=== PATIENT | male | born 1955 | race Caucasian/White ===

== ENCOUNTER 2019-09-08 23:07 | Inpatient (IN) | payer BC, OTHER ==
[~2019-09-08] VITALS: Ht 175.3 cm; Wt 102.1 kg
[2019-09-08 23:10] VITALS: BP_SYST 154
--- NOTE | 2019-09-08 23:14 | NUR ---
Matt wing in [facility] - 09/09/19 at 0028 by [email or web address] CATIE Johnson at bedside examining patient.
--- NOTE | 2019-09-08 23:14 | NUR ---
Pt had one episode of emesis. ER MD made aware.
--- NOTE | 2019-09-08 23:15 | NUR ---
PPlaced in room 3 . Placed on threat monitoring analyst, blood pressure machine and pulse oximeter. To gown for exam. Side rails up.
[2019-09-08] MEDS ORDERED: NACL 0.9% 1,000 ML IV ONE (23:16)
--- NOTE | 2019-09-08 23:16 | NUR ---
ER at bedside examining patient.
--- NOTE | 2019-09-08 23:20 | NUR ---
Matt wing in [facility] - 09/09/19 at 0029 by [email or web address] CATIE Johnson at bedside examining patient.
--- NOTE | 2019-09-08 23:20 | NUR ---
Pt came to the ED for 1 hour hx of gradual R sided chest pain. Reports he currently feels nauseious. States that he has RUQ abd pain that radiates up. Pt states he has cold-like symptoms for about a week. Denies n/v/d or fever. No other complaints/injuries noted. Will cont. to monitor.
--- NOTE | 2019-09-08 23:20 | NUR ---
Pt reports that he has an "irregular heartbeat that sometimes skips a beat." Pt states that he has been following it up with multiple shaft sinker. CATIE PISANO made aware.
[2019-09-08] MEDS ORDERED: MAG HYDROX/AL HYDROX/SIMETH 30 ML, DICYCLOMINE HCL 20 MG, LIDOCAINE VISCOUS 2% 15ML (PO... PO ONE ×3 (23:30)
[2019-09-08] MEDS ORDERED: ONDANSETRON HCL 4 MG/2 ML VIAL IVP ONE (23:30)
[2019-09-09 00:35] LABS: BASOPHILS # (AUTO) 0.1 K/uL (0.0-0.2); BASOPHILS % (AUTO) 0.5 % (0.0-2.0); EOSINOPHILS # (AUTO) 0.2 K/uL (0.0-0.4); EOSINOPHILS % (AUTO) 1.7 % (0.0-4.0); HEMATOCRIT 41.3 % (36-54); HEMOGLOBIN 14.2 g/dL (14.0-18.0); LYMPHOCYTES # (AUTO) 2.6 K/uL (1.0-5.5); LYMPHOCYTES % (AUTO) 22.2 % (20.5-51.5); MEAN CORPUSCULAR HEMOGLOBIN 33 pg (27-31); MEAN CORPUSCULAR HGB CONC 34 % (32-36); MEAN CORPUSCULAR VOLUME 96 fL (79.0-98.0); MONOCYTES # (AUTO) 1.1 K/uL (0.0-1.0); NEUTROPHILS # (AUTO) 7.8 K/uL (1.8-7.7); NEUTROPHILS % (AUTO) 66.6 % (40.0-70.0); PLATELET COUNT (AUTO) 424 K/uL (130-430); RED BLOOD CELL COUNT(AUTO) 4.29 MIL/uL (4.2-6.2); RED CELL DISTRIBUTION WIDTH 13.4 % (9.0-15.0); WHITE BLOOD COUNT (AUTO) 11.7 K/uL (4.8-10.8)
--- NOTE | 2019-09-09 00:45 | NUR ---
ER at bedside speaking to patient.
[2019-09-09 00:52] LABS: CALCIUM 8.6 mg/dL (8.4-11.0); CREATININE 1.02 mg/dL (0.55-1.30); POTASSIUM 3.4 mmol/L (3.5-5.1)
[2019-09-09 00:56] LABS: ALBUMIN 3.7 g/dL (3.4-4.8); TOTAL BILIRUBIN 0.2 mg/dL (0.0-1.0)
[2019-09-09] MEDS ORDERED: ASPIRIN 81 MG TAB.CHEW PO ONE (01:00)
[2019-09-09] MEDS ORDERED: NITROGLYCERIN 0.4 MG TAB.SUBL SL ONE (01:00)
[2019-09-09] MEDS ORDERED: CLOPIDOGREL BISULFATE 75 MG TABLET PO ONE (01:00)
--- NOTE | 2019-09-09 01:00 | NUR ---
Per Dr. Reyes, give pt one dose of nitroglycerin.
--- NOTE | 2019-09-09 01:15 | NUR ---
Pt states, "my chest pain is almost gone." ER MD made aware.
--- NOTE | 2019-09-09 01:55 | NUR ---
Note maciej in ED - 09/09/19 at 0219 by [email or web address] Pt states that he is not sure how many milligrams the liptor he takes. Reports that he takes it every other day.
--- NOTE | 2019-09-09 01:55 | NUR ---
Patient will be admitted to care of Dr. Gallegos. Admitted to Tele unit. Will go to room 133B. Belongings list completed. Complete and up to date summary report printed. SBAR report to be given at bedside with opportunity for questions.
--- NOTE | 2019-09-09 02:20 | NUR ---
Medication reconciliation completed with information provided by patient. Any prior medication reconciliation on file was reviewed and corrected.
[2019-09-09] MEDS ORDERED: LISI10TA5 PO (02:24)
--- NOTE | 2019-09-09 02:25 | NUR ---
Called MST for bed, will call when bed is ready.
[2019-09-09 02:40] LABS: BILIRUBIN,URINE NEGATIVE (NEGATIVE); CLARITY/URINE CLEAR (CLEAR); COLOR,URINE YELLOW (YELLOW); GLUCOSE,URINE NEGATIVE (NEGATIVE); KETONES,URINE NEGATIVE (NEGATIVE); LEUKOCYTE ESTERASE ,URINE NEGATIVE (NEGATIVE); NITRITE, URINE NEGATIVE (NEGATIVE); PROTEIN URINE 1+ (NEGATIVE); UROBILINOGEN,URINE 0.2 (0.2-1.0)
[2019-09-09 02:42] LABS: BLOOD, URINE TRACE (NEGATIVE)
[2019-09-09 02:48] LABS: BACTERIA,URINE FEW /HPF (None Seen); WBC,URINE 0-3 /HPF (0-3)
--- NOTE | 2019-09-09 03:07 | NUR ---
ADMIT NOTE Received pt from ER to the floor with a diagnosis of NTSTEMI, CHOLELITHIASIS. Admission process initiated. patient oriented to pain management, safety and call light-teach back done.
[2019-09-09 03:18] VITALS: BP_SYST 136
[2019-09-09] MEDS ORDERED: MORPHINE 4 MG/ML INJ. SYRINGE IVP PRN (04:00)
[2019-09-09] MEDS ORDERED: ACETAMINOPHEN 325 MG TABLET PO PRN (04:00)
[2019-09-09] MEDS ORDERED: ALBUTEROL SULFATE 0.083% 2.5 MG/3 ML VIAL.NEB INH PRN (04:00)
[2019-09-09] MEDS ORDERED: MORPHINE 2 MG/ML INJ. SYRINGE IVP PRN (04:00)
--- NOTE | 2019-09-09 04:00 | NUR ---
DR PASCUAL AT BEDSIDE Dr Pascual at bedside assessing patient. Plan of care explained to the patient and patient's . All questions and concerns addressed at this time.
[2019-09-09 04:14] VITALS: BP_SYST 136
[2019-09-09] MEDS ORDERED: *LOVENOX 1MG/KG Q12H/PHARMACY XX PRN (04:15)
[2019-09-09] MEDS ORDERED: POTASSIUM CHLORIDE 20 MEQ TAB.PRT.SR PO ONE (05:00)
[2019-09-09] MEDS ORDERED: ENOXAPARIN SODIUM 100 MG/ML SYRINGE SUBCUT SCH (05:00)
--- NOTE | 2019-09-09 05:42 | NUR ---
Consultation Paged Reason for Consultation: Seizure Was consult called: Y Person who was Notified: Brittani Consulting Physician: Jake Chambers Ground Intelligence Officer Ordering Physician: Dr. Saxena Addendum: 09/09/19 at 0553 by Leela Vick ME/ ======WRONG CONSULT
--- NOTE | 2019-09-09 05:54 | NUR ---
Consultation Paged Reason for Consultation: NSTEMI Was consult called: Y Person who was Notified: Brittani Consulting Physician: Junior Dupree Flame Annealing Machine Operator Ordering Physician: Dr. Gallegos
--- NOTE | 2019-09-09 06:41 | NUR ---
CLOSING NOTES Patient in bed sleeping. No s/s of acute distress noted. Breathing even and unlabored. IVF infusing well, IV site patent, no signs of infiltration or infection noted. Skin warm and dry to touch, no s/s of hypoglycemia noted. All needs met throughout shift. Fall and safety precautions maintained throughout shift. Will continue to monitor until patient care is endorsed to oncoming dayshift nurse.
[2019-09-09 08:00] VITALS: BP_SYST 122
--- NOTE | 2019-09-09 08:00 | NUR ---
ASSUMPTION OF CARE: RECEIVED PT A/A/OX4, DX:RISK FOR DECREASED CARDIAC OUTPUT, R/T NSTEMI, CHOLELITHIASIS. PT IS AFEBRILE, NO S/S OF DISTRESS, SINUS CHERELLE ON MONITOR=51 BPM, ASYMPTOMATIC, PULSES ARE PALPABLE, SKIN IS WARM, DRY TO TOUCH, BREATHING EASY, DENIES HAVING ANY PAIN OR DISCOMFORT, ORIENTED TO UNIT, CALL LIGHT PLACED WITHIN REACH, FAMILY AT BEDSIDE, WILL CONT' TO MONITOR AND ASSESS.
[2019-09-09 08:05] LABS: BASOPHILS # (AUTO) 0.1 K/uL (0.0-0.2); BASOPHILS % (AUTO) 0.6 % (0.0-2.0); EOSINOPHILS # (AUTO) 0.1 K/uL (0.0-0.4); EOSINOPHILS % (AUTO) 0.5 % (0.0-4.0); HEMATOCRIT 37.8 % (36-54); HEMOGLOBIN 13.1 g/dL (14.0-18.0); LYMPHOCYTES # (AUTO) 1.8 K/uL (1.0-5.5); LYMPHOCYTES % (AUTO) 16.9 % (20.5-51.5); MEAN CORPUSCULAR HEMOGLOBIN 34 pg (27-31); MEAN CORPUSCULAR HGB CONC 35 % (32-36); MEAN CORPUSCULAR VOLUME 97 fL (79.0-98.0); NEUTROPHILS # (AUTO) 7.8 K/uL (1.8-7.7); PLATELET COUNT (AUTO) 371 K/uL (130-430); RED BLOOD CELL COUNT(AUTO) 3.92 MIL/uL (4.2-6.2); WHITE BLOOD COUNT (AUTO) 10.7 K/uL (4.8-10.8)
[2019-09-09 08:09] LABS: ALBUMIN 3.2 g/dL (3.4-4.8); CALCIUM 8.1 mg/dL (8.4-11.0); CREATININE 0.87 mg/dL (0.55-1.30); POTASSIUM 4.2 mmol/L (3.5-5.1)
[2019-09-09 08:10] LABS: TOTAL BILIRUBIN 0.5 mg/dL (0.0-1.0)
--- NOTE | 2019-09-09 08:17 | NUR ---
ANTONINA SERRANO FOR CRITICAL LAB
--- NOTE | 2019-09-09 09:50 | NUR ---
PONY ROUGHER: MORNING MEDS GIVEN, PER ORDERED BY Sally, TOLERATED WELL, WILL CONT' WITH POC.
[2019-09-09] MEDS: ASPIRIN 325 MG TABLET PO SCH (10:10)
[2019-09-09] MEDS: LISINOPRIL 10 MG TABLET (PRINIVIL) PO SCH (10:10)
--- NOTE | 2019-09-09 11:30 | NUR ---
GLUCOSE MONITORING: BLOOD SUGAR LEVEL=93, NO COVERAGE REQUIRED, REMAINS STABLE AT THIS TIME, WILL CONT' TO MONITOR AND ASSESS.
[2019-09-09 12:10] VITALS: BP_SYST 122
--- NOTE | 2019-09-09 15:00 | NUR ---
NURSES NOTES: ABDOMINAL US COMPLETED AT BEDSIDE, PT TOLERATED WELL, IS RESTING IN POSITION OF COMFORT, NEEDS MET, FAMILY AT BEDSIDE, CALL LIGHT PLACED WITHIN REACH, WILL CONT' TO MONITOR AND ASSESS.
--- NOTE | 2019-09-09 17:00 | NUR ---
GLUCOSE MONITORING: BLOOD SUGAR LEVEL=91, NO COVERAGE REQUIRED, REMAINS STABLE AT THIS TIME, WILL CONT' TO MONITOR AND ASSESS.
[2019-09-09 17:02] VITALS: BP_SYST 116
--- NOTE | 2019-09-09 17:30 | NUR ---
NURSES NOTES: PT AND FAMILY REQUEST TO BE DISCHARGE REGARDLESS OF PRESENT CONDITION OR PENDING RESULTS OF ABD ULTRA SOUND, PT STATES "I NEED TO SPEAK WITH MY DRHector NOW SO I CAN BE DISCHARGED OR I WILL SIGN MYSELF OUT AMA", NURSE DISCUSSED THE BENEFIT OF BEING PATIENT AND WAITING FOR RESULTS WELL OF THE DISADVANTAGES OF LEAVING BEFORE 'S ASSESSMENT OF TEST RESULTS AND TREATMENT PLAN, PT AND FAMILY APPEAR ANXIOUS TO LEAVE, BUT AGREE TO STAY AT THIS POINT, PT MADE COMFORTABLE, NEEDS MET, CALL LIGHT PLACED WITHIN REACH.
--- NOTE | 2019-09-09 18:00 | NUR ---
END OF SHIFT: PT RESTING, STATES HE IS ANXIOUS TO BE DISCHARGED, WAS MADE COMFORTABLE, AND REASSURED THAT PCP WILL B HERE TO MAKE ROUNDS, FAMILY AT BEDSIDE, CALL LIGHT PLACED WITHIN REACH, WILL ENDORSE TO RETAIL GENERAL MANAGER NURSE.
--- NOTE | 2019-09-09 19:25 | NUR ---
Pt is lying is bed fully awake, alert and oriented x4. No c/o pain or discomfort. Saline lock in LAC is without any signs of infiltration. Fall and safety precautions are in place.
[2019-09-09 20:00] VITALS: BP_SYST 105
--- NOTE | 2019-09-09 20:48 | NUR ---
Accucheck 103 and no Insulin coverage needed. Skin warm and dry to touch. Pt declined HS snacks. Fall and safety precautions are in place.
[2019-09-09] MEDS: ENOXAPARIN SODIUM 100 MG/ML SYRINGE SUBCUT SCH (20:50)
--- NOTE | 2019-09-09 23:00 | NUR ---
Pt is sleeping without any distress noted. Saline lock is intact in LAC. Fall and safety precautions are in place.
--- NOTE | 2019-09-10 01:00 | NUR ---
Pt is sleeping comfortably in bed. Saline lock is intact in LAC. Fall and safety precautions are in place.
--- NOTE | 2019-09-10 03:00 | NUR ---
Pt is sleeping quietly in bed. Fall and safety precautions are in place.
--- NOTE | 2019-09-10 05:00 | NUR ---
No distress noted. Fall and safety precautions are in place.
[2019-09-10 05:59] LABS: ALBUMIN 3.1 g/dL (3.4-4.8); CALCIUM 8.4 mg/dL (8.4-11.0); CREATININE 0.88 mg/dL (0.55-1.30); POTASSIUM 4.4 mmol/L (3.5-5.1); TOTAL BILIRUBIN 0.6 mg/dL (0.0-1.0)
[2019-09-10 06:37] LABS: BASOPHILS % (AUTO) 0.7 % (0.0-2.0); EOSINOPHILS # (AUTO) 0.2 K/uL (0.0-0.4); HEMATOCRIT 39.4 % (36-54); HEMOGLOBIN 13.4 g/dL (14.0-18.0); LYMPHOCYTES # (AUTO) 2.3 K/uL (1.0-5.5); LYMPHOCYTES % (AUTO) 32.4 % (20.5-51.5); MEAN CORPUSCULAR HEMOGLOBIN 33 pg (27-31); MEAN CORPUSCULAR HGB CONC 34 % (32-36); MEAN CORPUSCULAR VOLUME 98 fL (79.0-98.0); MONOCYTES # (AUTO) 0.6 K/uL (0.0-1.0); MONOCYTES % (AUTO) 8.9 % (1.7-9.3); NEUTROPHILS # (AUTO) 3.8 K/uL (1.8-7.7); PLATELET COUNT (AUTO) 364 K/uL (130-430); RED BLOOD CELL COUNT(AUTO) 4.03 MIL/uL (4.2-6.2); RED CELL DISTRIBUTION WIDTH 13.1 % (9.0-15.0)
--- NOTE | 2019-09-10 06:37 | NUR ---
Pt is awake and resting comfortably in bed. All pt's needs were attended to. Accucheck 112 this Am and skin remains warm and dry to touch. Fall and safety precautions are in place. Will endorse to day shift nurse.
[2019-09-10 08:00] VITALS: BP_SYST 116
--- NOTE | 2019-09-10 08:00 | NUR ---
initial notes rec patient sitting in the chair and talking to dr yeung. ivl on the l ac intact. no infiltration. resp easy unlabored. no sob noted. denies pain. call light within reached. bed to the lowest position.
[2019-09-10] MEDS: ASPIRIN 325 MG TABLET PO SCH (09:22)
[2019-09-10] MEDS: LISINOPRIL 10 MG TABLET (PRINIVIL) PO SCH (09:23)
[2019-09-10] MEDS: ENOXAPARIN SODIUM 100 MG/ML SYRINGE SUBCUT SCH (09:24)
--- NOTE | 2019-09-10 11:00 | NUR ---
rounds seen by dr trujillo and spoke with patient and the . awaiting for sx consult .
--- NOTE | 2019-09-10 11:49 | NUR ---
CONSULTATION PAGED/CALLED Reason for Consultation: [] cholilithiasis Person Who was Notified: [] NITA Consulting Physician: [] DR Kelli WEI Furniture Installer Specialty: [] GEN SURGEON Ordering Physician: [] DR Suni BLANCO
--- NOTE | 2019-09-10 12:30 | NUR ---
rounds dr jamee mancia at bedside to see patient re sx. call light within reached. no sob noted.
[2019-09-10] MEDS ORDERED: AMOX-426 PO (13:03)
[2019-09-10 13:28] VITALS: BP_SYST 128
[2019-09-10 14:09] VITALS: BP_SYST 128
== END 2019-09-10 14:50 | disposition home or self-care (01) | DRG 281 ==
LOC: SED 23:07 → STU 09-09 01:10
PROVIDERS: ADMIT Internal Medicine Hospice and Palliative Medicine; ATTEND Internal Medicine Hospice and Palliative Medicine
DX: I21.A1 Myocardial infarction type 2 (principal); K80.00 Calculus of gallbladder with acute cholecystitis without obstruction; E66.9 Obesity, unspecified; F17.290 Nicotine dependence, other tobacco product, uncomplicated; I10 Essential (primary) hypertension; R73.9 Hyperglycemia, unspecified; Z79.899 Other long term (current) drug therapy; Z68.33 Body mass index [BMI] 33.0-33.9, adult
CPT/HCPCS: 36415; 71045; 76700-TC; 80053; 80061; 81000-TC; 82150-TC; 82550-TC; 82962; 83036; 83605; 83690-TC; 83880; 84484; 85025; 85610-TC; 85730-TC; 87040-TC; 93005; 93306; 96361; 96374; 99285; G0378; J1650; J2001; J2405; J7030

== ENCOUNTER 2019-09-11 23:44 | Emergency (ER) | payer BC, OTHER ==
[~2019-09-11] VITALS: Ht 175.3 cm; Wt 97.5 kg
[~2019-09-11 23:44] MED LIST: AMOX-426 PO; LISI10TA5 PO
[2019-09-11 23:50] VITALS: BP_SYST 138
--- NOTE | 2019-09-11 23:59 | NUR ---
Patient to ER bed 6 to gown for evaluation. Side rails up. Report given to Conor LEWIS.
[2019-09-12] MEDS ORDERED: KETOROLAC TROMETHAMINE 60 MG/2 ML VIAL IM ONE (00:15)
--- NOTE | 2019-09-12 00:20 | NUR ---
PLACED IN BED 6. HERE FOR RUQ ABDOMINAL PAIN,NAUSEA,VOMITING. NAUSEA IS MINIMAL AT THIS TIME BUT PAIN IS SEVERE (05/14). WAS HERE LAST SATURDAY FOR THE SAME PROBLEM AND WAS DIAGNOSED TO HAVE GALLSTONES.
--- NOTE | 2019-09-12 00:30 | NUR ---
TORADOL 60 MG IM GIVEN ORDERED.
--- NOTE | 2019-09-12 01:28 | NUR ---
DISCHARGED STABLE AND IMPROVED. PRESCRIPTION,VERBAL AND WRITTEN AFTERCARE INSTRUCTIONS GIVEN. VERBALIZED UNDERSTANDING. LEFT AMBULATORY WITH STABLE GAIT.
[2019-09-12 01:31] VITALS: BP_SYST 127
== END 2019-09-12 01:31 | disposition home or self-care (01) ==
LOC: SED 23:44
DX: K80.80 Other cholelithiasis without obstruction (principal); R10.11 Right upper quadrant pain
CPT/HCPCS: 96372; 99283; J1885

== ENCOUNTER 2019-09-22 23:27 | Inpatient (IN) | payer BC, OTHER ==
[~2019-09-22] VITALS: Ht 175.3 cm; Wt 101.2 kg
[2019-09-22] MEDS ORDERED: NACL 0.9% 1,000 ML IV ONE (23:39)
[2019-09-22] MEDS ORDERED: ONDANSETRON HCL 4 MG/2 ML VIAL IVP ONE (23:45)
[2019-09-22] MEDS ORDERED: MORPHINE 4 MG/ML INJ. SYRINGE IVP ONE (23:45)
[2019-09-22 23:56] VITALS: BP_SYST 132
[2019-09-23] VITALS (8 sets, daily range): BP systolic 100–138
--- NOTE | 2019-09-23 00:01 | NUR ---
Patient triaged and placed in waiting room. VSS and patient appears in no acute distress at this time. Accompanied by , awaiting available bed, and MD notified of need for MSE.
--- NOTE | 2019-09-23 00:04 | NUR ---
Pt c/o RUQ abdominal pain since 1999 last night. Pt states that he has a hx of gall stones and is scheduled to have a cholecystectomy this Saturday. Pt states that he was here 11 days ago and was given RX for Motrin and Leverett. At 1999, pt took Motrin 800 mg PO x 1 and Leverett PO x 2, then vomited about 10 minutes later. "Every time I take them, I vomit." No active vomiting noted at this time.
--- NOTE | 2019-09-23 00:04 | NUR ---
Patient to ER bed 03 to gown for evaluation. Side rails up. Report given to JOSHUA Williamson
--- NOTE | 2019-09-23 00:26 | NUR ---
Dr. Reyes at bedside.
--- NOTE | 2019-09-23 00:30 | NUR ---
# 20 gauge angiocath placed to RAC. Use of asceptic technique. Opsite placed over site. Blood return noted. Blood for lab drawn from site. Flushed with 10 cc of normal saline. No evidence of infiltration noted. Patient tolerated well.
[2019-09-23 00:46] LABS: BILIRUBIN,URINE 1+ (NEGATIVE); BLOOD, URINE NEGATIVE (NEGATIVE); CLARITY/URINE CLEAR (CLEAR); COLOR,URINE YELLOW (YELLOW); GLUCOSE,URINE NEGATIVE (NEGATIVE); KETONES,URINE TRACE (NEGATIVE); LEUKOCYTE ESTERASE ,URINE NEGATIVE (NEGATIVE); NITRITE, URINE NEGATIVE (NEGATIVE); PH,URINE 5.5 (5.0-8.0); PROTEIN URINE 2+ (NEGATIVE); UROBILINOGEN,URINE 0.2 (0.2-1.0)
[2019-09-23 01:03] LABS: BACTERIA,URINE FEW /HPF (None Seen); RBC,URINE 0-3 /HPF (0-3)
[2019-09-23 01:09] LABS: BASOPHILS % (AUTO) 0.3 % (0.0-2.0); EOSINOPHILS % (AUTO) 0.3 % (0.0-4.0); HEMATOCRIT 41.1 % (36-54); HEMOGLOBIN 13.8 g/dL (14.0-18.0); LYMPHOCYTES # (AUTO) 1.2 K/uL (1.0-5.5); LYMPHOCYTES % (AUTO) 7.7 % (20.5-51.5); MEAN CORPUSCULAR HEMOGLOBIN 32 pg (27-31); MEAN CORPUSCULAR HGB CONC 34 % (32-36); MEAN CORPUSCULAR VOLUME 97 fL (79.0-98.0); MONOCYTES # (AUTO) 0.7 K/uL (0.0-1.0); MONOCYTES % (AUTO) 4.6 % (1.7-9.3); NEUTROPHILS # (AUTO) 13.1 K/uL (1.8-7.7); NEUTROPHILS % (AUTO) 87.1 % (40.0-70.0); PLATELET COUNT (AUTO) 432 K/uL (130-430); RED BLOOD CELL COUNT(AUTO) 4.26 MIL/uL (4.2-6.2); RED CELL DISTRIBUTION WIDTH 13.2 % (9.0-15.0); WHITE BLOOD COUNT (AUTO) 15.1 K/uL (4.8-10.8)
[2019-09-23 01:17] LABS: CALCIUM 8.6 mg/dL (8.4-11.0); CREATININE 1.05 mg/dL (0.55-1.30); POTASSIUM 3.7 mmol/L (3.5-5.1)
[2019-09-23 01:21] LABS: PROTHROMBIN TIME 10.4 SECS (9.5-12.5)
--- NOTE | 2019-09-23 01:22 | NUR ---
Pt resting quietly, easily awakened. Verbalizes improvement in pain, no needs verbalized at this time.
[2019-09-23 01:23] LABS: ALBUMIN 3.9 g/dL (3.4-4.8); TOTAL BILIRUBIN 0.4 mg/dL (0.0-1.0)
--- NOTE | 2019-09-23 01:39 | NUR ---
Dr. Reyes at bedside to update on POC.
[2019-09-23] MEDS ORDERED: PIPERACILLIN/TAZO 4.5 GM in NS 100 ML IV ONE (01:45)
[2019-09-23] MEDS ORDERED: PIPERACILLIN/TAZOBACTAM 4.5 GM/VIAL (ZOSYN) IV ONE (01:59)
--- NOTE | 2019-09-23 02:00 | NUR ---
Pt c/o RUQ abdominal pain 05/14. Dr. Reyes notified.
[2019-09-23] MEDS ORDERED: MORPHINE 4 MG/ML INJ. SYRINGE IVP ONE (02:15)
--- NOTE | 2019-09-23 02:37 | NUR ---
Patient will be admitted to care of Dr. Davis. Admitted to telemetry unit. Room assignment pending. Belongings list completed. Complete and up to date summary report printed. SBAR report to be given at bedside with opportunity for questions.
[2019-09-23] MEDS ORDERED: ONDA4TAB5 PO (02:52)
[2019-09-23] MEDS ORDERED: IBUP-1970 PO (02:52)
[2019-09-23] MEDS ORDERED: HYDR-4272 PO (02:52)
--- NOTE | 2019-09-23 02:52 | NUR ---
Medication reconciliation completed with information provided by patient's medication bottles. Any prior medication reconciliation on file was reviewed and corrected.
--- NOTE | 2019-09-23 03:50 | NUR ---
Dr. Gallegos at bedside.
--- NOTE | 2019-09-23 04:15 | NUR ---
ADMISSION NOTE Received patient from ER via gurney. Patient admitted with diagnosis of Cholecystitis. Patient is awake, alert, oriented X 4. Patient oriented to hospital room, call light, toileting, pain management and safety-teach back done. Patient informed that JOSHUA Gold will be primary nurse and that their room number is 118B. Personal belongings checked and Belongings List documented. Call light within reach.
[2019-09-23] MEDS ORDERED: ALBUTEROL SULFATE 0.083% 2.5 MG/3 ML VIAL.NEB INH PRN (04:30)
[2019-09-23] MEDS ORDERED: MORPHINE 2 MG/ML INJ. SYRINGE IVP PRN (04:30)
[2019-09-23] MEDS ORDERED: MORPHINE 4 MG/ML INJ. SYRINGE IVP PRN (04:30)
[2019-09-23] MEDS ORDERED: ACETAMINOPHEN 325 MG TABLET PO PRN (04:30)
--- NOTE | 2019-09-23 04:30 | NUR ---
INITIAL NOTES: PT IS ALERT AND ORIENTED ; NOT IN ANY ACUTE DISTRESS; VITALS ARE STABLE ; AT BEDSIDE ; IV TO THE [facility] AT THIS TIME ; DR PASCUAL IS MAKING ROUNDS . ASSESSMENT DONE ; BED IN OW AND LOCK POSIITON , CALL LARIOS IN REACH WILL CONTINUE TO MONITOR PT .
--- NOTE | 2019-09-23 05:00 | NUR ---
MD CALLED : NOTIFIED MD THAT PT DOESNT HAVE ANY SURGERY / CARDIAC CONSULT , MD ORDERED DR LEIGH AND DR ROACH CONSULT .
[2019-09-23] MEDS: NACL 0.9% 1,000 ML IV SCH ×5 (05:14→23:34)
--- NOTE | 2019-09-23 05:20 | NUR ---
MRSA COLLECTED : MRSA SWAB COLLECTED AND SENT TO LAB .
--- NOTE | 2019-09-23 05:21 | NUR ---
Consult As per Lenore, ED already called for the stat consult for Dr. Dunn, re:Cholecystitis
--- NOTE | 2019-09-23 05:31 | NUR ---
Consultation Paged Reason for Consultation: Elevated Troponin Was consult called: Y Person who was notified: Supervisor Lathing 22 Consulting Physician: Dr. Finn Information Coordinator Ordering Physician: Dr. Gallegos
[2019-09-23] MEDS: PIPERACILLIN/TAZO 3.375/DEX-IS 50 ML IV SCH ×4 (05:32→23:30)
[2019-09-23] MEDS ORDERED: PIPERACILLIN/TAZOBACTAM 3.375 GM/VIAL (ZOSYN) IV ONE (05:43)
--- NOTE | 2019-09-23 05:58 | NUR ---
RN NOTES; PT IS SLEEPING , DUE ANTIBIOTIC IS INFUSING WELL , NO S/S OF ANY ALLERGIC REACTION NOTICED ; AT BEDSIDE ; WILL CONTINUE TO MONITOR PT .
--- NOTE | 2019-09-23 06:50 | NUR ---
CALLED : DR ROACH CALLED AND ASKED ABOUT PTS LAB , MD ORDERED TO GET CARDIAC CLEARANCE , THEN LAP VS OPEN CHOLECYSTECTOMY .
--- NOTE | 2019-09-23 07:25 | NUR ---
INITIAL NOTE PT AWAKE, AMBULATING TO RESTROOM WITH STEADY GAIT. PAIN CONTROLLED AT THIS TIME. IVF INFUSING WELL. CALL LIGHT WITHIN REACH, BED IN LOW AND LOCKED POSITION. EDUCATED PT ON SAFETY AND USE OF BED ALARM, PT VERBALIZED UNDERSTANDING. PT REFUSING BED ALARM.
--- NOTE | 2019-09-23 07:26 | NUR ---
CLOSING NOTES: PT IS NPO , NOT IN ANY ACUTE DISTRESS; NO C/O ANY PAIN OR NAUSEA / VOMITING AT THIS TIME ; REPORT GIVEN TO RN ; ALL NEEDS ATTENDED .
--- NOTE | 2019-09-23 07:40 | NUR ---
DR. LEIGH SPOKE WITH MD VIA PHONE, INFORMED MD THAT DR. ROACH WOULD LIKE THE PT TO HAVE SURGERY TODAY EARLIEST AT POSSIBLE BUT MUST BE CLEARED BY CARDIO FIRST. MD AWARE AND STATED HE WILL TRY HIS BEST TO BE HERE SOON. VERIFIED WITH READ BACK.
[2019-09-23 07:51] LABS: BASOPHILS # (AUTO) 0.1 K/uL (0.0-0.2); BASOPHILS % (AUTO) 0.4 % (0.0-2.0); EOSINOPHILS % (AUTO) 0.1 % (0.0-4.0); HEMATOCRIT 44.5 % (36-54); HEMOGLOBIN 14.7 g/dL (14.0-18.0); LYMPHOCYTES # (AUTO) 0.7 K/uL (1.0-5.5); LYMPHOCYTES % (AUTO) 3.8 % (20.5-51.5); MEAN CORPUSCULAR HEMOGLOBIN 33 pg (27-31); MEAN CORPUSCULAR HGB CONC 33 % (32-36); MEAN CORPUSCULAR VOLUME 98 fL (79.0-98.0); MONOCYTES # (AUTO) 1.4 K/uL (0.0-1.0); MONOCYTES % (AUTO) 7.2 % (1.7-9.3); NEUTROPHILS # (AUTO) 17.3 K/uL (1.8-7.7); NEUTROPHILS % (AUTO) 88.5 % (40.0-70.0); PLATELET COUNT (AUTO) 393 K/uL (130-430); RED BLOOD CELL COUNT(AUTO) 4.53 MIL/uL (4.2-6.2); RED CELL DISTRIBUTION WIDTH 13.1 % (9.0-15.0); WHITE BLOOD COUNT (AUTO) 19.5 K/uL (4.8-10.8)
[2019-09-23 08:19] LABS: ALBUMIN 3.7 g/dL (3.4-4.8); POTASSIUM 4.7 mmol/L (3.5-5.1)
[2019-09-23 08:54] LABS: CALCIUM 8.5 mg/dL (8.4-11.0); CREATININE 1.14 mg/dL (0.55-1.30)
[2019-09-23] MEDS ORDERED: LISINOPRIL 10 MG TABLET (PRINIVIL) PO SCH (09:00)
--- NOTE | 2019-09-23 09:06 | NUR ---
DR. LEIGH/CRITICAL LAB MD AT BEDSIDE, INFORMED MD OF CRITICAL TROPONIN 0.230. MD TO CLEAR PT FOR SURGERY AND CONTINUE CURRENT POC.
[2019-09-23 09:07] LABS: TOTAL BILIRUBIN 0.8 mg/dL (0.0-1.0)
--- NOTE | 2019-09-23 09:30 | NUR ---
RN ROUNDS PT LYING DOWN COMPLAINING OF CHILLS. TEMP 98.8. WILL CONTINUE TO MONITOR.
--- NOTE | 2019-09-23 11:30 | NUR ---
TEMP 100.6/DR. DOC PISANO AT BEDSIDE SPEAKING WITH PT. INFORMED MD OF TEMPERATURE. GAVE PT ICE PACKS. PT WILL BE PICKED UP SOON FOR SURGERY. IV ANTIBIOTICS INFUSING.
--- NOTE | 2019-09-23 11:58 | NUR ---
LEFT TO SURGERY PT TAKEN TO SURGERY VIA GURNEY, ACCOMPANIED BY OR NURSES. PT CHART WITH OR NURSES.
[2019-09-23] MEDS ORDERED: ONDANSETRON HCL 4 MG/2 ML VIAL IVP PRN ×2 (12:15→13:30)
[2019-09-23] MEDS ORDERED: fentaNYL CITRATE/PF 100 MCG/2 ML AMP IVP PRN ×2 (12:15)
[2019-09-23] MEDS ORDERED: KETOROLAC TROMETHAMINE 30 MG VIAL IVP PRN (12:15)
[2019-09-23] MEDS ORDERED: HYDROmorphone 1 MG INJ. 1 MG/ML AMPUL IVP PRN (13:30)
[2019-09-23] MEDS ORDERED: BUPIVACAINE /EPINEPHRINE/PF 0.25% 30 ML VIAL INJ ONE (13:35)
[2019-09-23] MEDS ORDERED: PROPOFOL 200MG/ 20ML VIAL (DIPRIVAN) IV ONE (13:35)
[2019-09-23] MEDS ORDERED: NS 1000 ML IV.SOLN IV ONE (13:35)
[2019-09-23] MEDS ORDERED: MIDAZOLAM HCL 5 MG/ML VIAL (VERSED) IV ONE (13:35)
[2019-09-23] MEDS ORDERED: CEFAZOLIN 2 GM IVPB PREMIX 50 ML IV ONE (13:35)
[2019-09-23] MEDS ORDERED: fentaNYL CITRATE/PF 100 MCG/2 ML AMP ONE (13:35)
[2019-09-23] MEDS ORDERED: GLYCOPYRROLATE 0.2 MG/ML VIAL ONE (13:35)
[2019-09-23] MEDS ORDERED: ROCURONIUM BROMIDE 10 MG/ML (ZEMURON) ONE (13:35)
[2019-09-23] MEDS ORDERED: WATER FOR IRRIGATION,STERILE 1,000 ML IRRIG.SOLN IR ONE (13:35)
[2019-09-23] MEDS ORDERED: NEOSTIGMINE METHYLSULFATE 1 MG/ML, 10 ML VIAL ONE (13:35)
[2019-09-23] MEDS ORDERED: SEVOFLURANE 15 MIN GAS INH ONE (13:35)
[2019-09-23] MEDS ORDERED: LR 1,000 ML IV.SOLN IV ONE (13:35)
[2019-09-23] MEDS ORDERED: ACETAMINOPHEN 325 MG TABLET ONE (14:12)
[2019-09-23] MEDS: ACETAMINOPHEN 325 MG TABLET PO PRN ×2 (14:15→23:33)
--- NOTE | 2019-09-23 14:50 | NUR ---
BACK FROM OR PT BROUGHT BACK VIA FREDI CLAYTON INFUSING, ON ROOM AIR. PT RUNNING FEVER OF 100.5, ICE PACKS WERE PLACED IN OR. AT BEDSIDE. Addendum: 09/23/19 at 1556 by Felisa Castillo RN TYLENOL GIVEN IN OR.
[2019-09-23] MEDS: HYDROcodone/ACETAMIN 5-325 MG TAB (NORCO/ VICODIN) PO PRN ×2 (15:21→21:19)
--- NOTE | 2019-09-23 15:30 | NUR ---
PAIN AND NAUSEA PT COMPLAINING OF 4/10 PAIN AND NAUSEA. EDUCATED PT ON USES AND SIDE EFFECTS OF NORCO AND ZOFRAN. PT VERBALIZED UNDERSTANDING. PRN NORCO AND ZOFRAN ADMINISTERED. PT FEVER 99.5. WILL CONTINUE TO MONITOR.
--- NOTE | 2019-09-23 17:30 | NUR ---
RN ROUNDS PT RESTING IN BED, PAIN CONTROLLED AT THIS TIME. FAMILY AT BEDSIDE. NO CHANGE IN ASSESSMENT.
--- NOTE | 2019-09-23 18:51 | NUR ---
CLOSING NOTE PT RESTING IN BED, PAIN CONTROLLED AT THIS TIME. IVF INFUSING WELL. CALL LIGHT WITHIN REACH, BED IN LOW AND LOCKED POSITION WITH BED ALARM ON. ALL NEEDS MET THROUGHOUT SHIFT. WILL CONTINUE TO MONITOR UNTIL PT CARE IS ENDORSED TO CUSHION STUFFER RN.
--- NOTE | 2019-09-23 21:23 | NUR ---
c/o of pain Patient reporting moderate pain 5/10 to abdomen. Administered [place] for moderate pain as ordered, educated on side effects and he verbalized understanding. He requested a new pitcher of ice water and it was provided, no other needs. Call light w/in reach.
--- NOTE | 2019-09-23 23:32 | NUR ---
IVF / antibiotic Hung new bag of IVF and infusing as ordered at 100 ml/ hr, Administered Zosyn antibiotic and educated on side effects, he verbalized understanding. Patient is connected to [facility]'s and he was asked to call for help when he gets up to the restroom. He does not want to use the urinal and prefers to get up for voiding. He was informed bed alarm will be on as safety precaution and he agreed. Call light is w/in reach.
--- NOTE | 2019-09-23 23:33 | NUR ---
Aroldo/S / cabrerap Patient had low grade fever of 99.9 temporal scan, Tylenol was administered as ordered, will follow up. Addendum: 09/23/19 at 2351 by Lorelei Valecnia RN Patient denies pain or nausea.
--- NOTE | 2019-09-24 00:33 | NUR ---
temp reassess Temp is the same 99.9 temporal scan. Patient ambulated to restroom and returned to bed. Marston was removed.
--- NOTE | 2019-09-24 01:10 | NUR ---
Cooling measures Provided ice pack cooling measures and presently is not covered. Will continue to monitor.
--- NOTE | 2019-09-24 02:15 | NUR ---
Temp reassess Temp decreased to 98.9. Patient denies pain or nausea. He is comfortable and wants to be covered, I provided sheet. IVF infusing well. He is ambulating to restoom and presently SCD's are off. Call light w/in reach.
--- NOTE | 2019-09-24 04:26 | NUR ---
RN rounds Patient resting w/ eyes closed and easily aroused. He denies pain or nausea. He is afebrile, 98.5 oral. He ambulated to restroom and returned back to bed. SCD's connected and bed alarm on. Call light w/in reach.
[2019-09-24] MEDS: PIPERACILLIN/TAZO 3.375/DEX-IS 50 ML IV SCH ×2 (06:30→11:40)
[2019-09-24 06:52] LABS: ALBUMIN 2.7 g/dL (3.4-4.8); CREATININE 1.15 mg/dL (0.55-1.30); POTASSIUM 3.7 mmol/L (3.5-5.1); TOTAL BILIRUBIN 1.1 mg/dL (0.0-1.0)
[2019-09-24 06:58] LABS: BASOPHILS % (AUTO) 0.2 % (0.0-2.0); HEMATOCRIT 35.7 % (36-54); HEMOGLOBIN 12.2 g/dL (14.0-18.0); LYMPHOCYTES # (AUTO) 0.9 K/uL (1.0-5.5); LYMPHOCYTES % (AUTO) 5.9 % (20.5-51.5); MEAN CORPUSCULAR HEMOGLOBIN 33 pg (27-31); MEAN CORPUSCULAR HGB CONC 34 % (32-36); MEAN CORPUSCULAR VOLUME 97 fL (79.0-98.0); MONOCYTES # (AUTO) 0.8 K/uL (0.0-1.0); MONOCYTES % (AUTO) 5.3 % (1.7-9.3); NEUTROPHILS # (AUTO) 13.8 K/uL (1.8-7.7); NEUTROPHILS % (AUTO) 88.6 % (40.0-70.0); PLATELET COUNT (AUTO) 318 K/uL (130-430); RED BLOOD CELL COUNT(AUTO) 3.68 MIL/uL (4.2-6.2); WHITE BLOOD COUNT (AUTO) 15.6 K/uL (4.8-10.8)
--- NOTE | 2019-09-24 07:30 | NUR ---
INITIAL NOTE PT RESTING IN BED, NO ACUTE DISTRESS NOTED, BREATHING EVEN AND UNLABORED. IVF INFUSING WELL. SCD'S IN PLACE. CALL LIGHT WITHIN REACH, BED IN LOW AND LOCKED POSITION. PT EDUCATED ON SAFETY AND USE OF BED ALARM, PT VERBALIZED UNDERSTANDING, PT REFUSING BED ALARM AT THIS TIME.
[2019-09-24 08:00] VITALS: BP_SYST 119
[2019-09-24] MEDS: ACETAMINOPHEN 325 MG TABLET PO PRN (08:25)
--- NOTE | 2019-09-24 09:30 | NUR ---
RN ROUNDS PT AWAKE, EATING BREAKFAST. FAMILY AT BEDSIDE. PT DENIES ANY PAIN OR DISCOMFORT AT THIS TIME. PT IS PASSING GAS. NO BOWEL MOVEMENT YET.
--- NOTE | 2019-09-24 09:30 | NUR ---
REFUSING TELE BOX PT REUSING TELE BOX. PT ATTEMPTED TO PULL OUT IV. DISCONNECTED PT FROM IV. IV ANTIBIOTICS FULLY INFUSED. PT SITTING AT EDGE OF BED. CALLED DAUGHTER NANDO, NO ANSWER, WILL ATTEMPT AGAIN LATER. Addendum: 09/24/19 at 1228 by Felisa Castillo RN WRONG PT ENTRY, DISREGARD
[2019-09-24] MEDS: NACL 0.9% 1,000 ML IV SCH ×2 (10:16→11:40)
[2019-09-24] MEDS ORDERED: AMOX-426 PO (10:55)
--- NOTE | 2019-09-24 11:00 | NUR ---
DR. BLANCO/RN ROUNDS MD AT BEDSIDE EXAMINING PT. INFORMED MD THAT PT IS PASSING GAS AND DIET HAS BEEN ADVANCED TO SOFT FOR LUNCH. MD TO DISCHARGE IF CLEARED BY DR. ROACH AND TOLERATES LUNCH WELL. PT DENIES ANY PAIN OR DISCOMFORT. VERIFIED WITH READ BACK.
[2019-09-24 12:00] VITALS: BP_SYST 119
[2019-09-24 12:26] VITALS: BP_SYST 113
--- NOTE | 2019-09-24 13:00 | NUR ---
RN ROUNDS PT TOLERATED SOFT DIET WELL. WILL PAGE DR. ROACH TO RECEIVE CLEARANCE FOR DISCHARGE.
--- NOTE | 2019-09-24 13:58 | NUR ---
PAGE DR. ROACH WAITING FOR RETURN CALL.
--- NOTE | 2019-09-24 15:54 | NUR ---
DR. DCO PISANO AT BEDSIDE EXAMINING PT. INFORMED MD PT IS PASSING GAS AND HAS HAD A BOWEL MOVEMENT TODAY. DR. BLANCO HAS PRESCRIBED ANTIBIOTICS FOR PT. MD TO CLEAR PT FOR DISCHARGE.
[2019-09-24 15:56] VITALS: BP_SYST 142
[2019-09-24 16:00] VITALS: BP_SYST 142
--- NOTE | 2019-09-24 16:31 | NUR ---
DISCHARGE NOTE DISCHARGE PACKET, INSTRUCTIONS AND E-PRESCRIPTIONS WITH PT. PT DENIES ANY PAIN OR DISCOMFORT. ALL BELONGINGS WITH PT. IV CATHETER REMOVED, CATHETER INTACT, NO BLEEDING. ID HOSPITAL BAND REMOVED. ESCORTED PT VIA WHEELCHAIR TO [facility] WITH . TO TAKE PT HOME VIA PRIVATE AUTO.
== END 2019-09-24 16:20 | disposition home or self-care (01) | DRG 417 ==
LOC: SED 23:27 → STU 09-23 02:33
PROVIDERS: ADMIT Internal Medicine Hospice and Palliative Medicine; ATTEND Internal Medicine Hospice and Palliative Medicine
PROC: 0FT44ZZ Resection of Gallbladder, Percutaneous Endoscopic Approach (ICD-10-PCS; principal; 2019-09-23 11:45)
DX: K80.00 Calculus of gallbladder with acute cholecystitis without obstruction (principal); I21.4 Non-ST elevation (NSTEMI) myocardial infarction; N39.0 Urinary tract infection, site not specified; I10 Essential (primary) hypertension; E66.9 Obesity, unspecified; F17.290 Nicotine dependence, other tobacco product, uncomplicated; Z68.32 Body mass index [BMI] 32.0-32.9, adult; Z79.899 Other long term (current) drug therapy
CPT/HCPCS: 36415; 71045; 80053; 81000-TC; 82150-TC; 82550-TC; 83605; 83690-TC; 84484; 85025; 85610-TC; 85730-TC; 87040-TC; 87081; 88304; 94010; 96361; 96365; 96375; 96376; 99285; C1727; G0378; J0690; J2250; J2270; J2405; J2543; J2704; J2710; J3010; J3490; J7030; J7120

== ENCOUNTER 2019-09-25 14:45 | Inpatient (IN) | payer BC, OTHER ==
[~2019-09-25] VITALS: Ht 175.3 cm; Wt 105.7 kg
[~2019-09-25 14:45] MED LIST changes: +HYDR-4272 PO; +IBUP-1970 PO; +ONDA4TAB5 PO
[2019-09-25 15:43] VITALS: BP_SYST 160
[2019-09-25] MEDS ORDERED: NACL 0.9% 1,000 ML IV ONE (16:59)
[2019-09-25] MEDS ORDERED: AZITHROMYCIN 500 MG in NS 250 ML IV ONE (17:30)
[2019-09-25 17:41] LABS: BASOPHILS % (AUTO) 0.2 % (0.0-2.0); EOSINOPHILS # (AUTO) 0.1 K/uL (0.0-0.4); EOSINOPHILS % (AUTO) 0.4 % (0.0-4.0); HEMATOCRIT 36.1 % (36-54); LYMPHOCYTES % (AUTO) 6.5 % (20.5-51.5); MEAN CORPUSCULAR HEMOGLOBIN 32 pg (27-31); MEAN CORPUSCULAR HGB CONC 33 % (32-36); MEAN CORPUSCULAR VOLUME 96 fL (79.0-98.0); MONOCYTES % (AUTO) 6.1 % (1.7-9.3); NEUTROPHILS # (AUTO) 13.7 K/uL (1.8-7.7); NEUTROPHILS % (AUTO) 86.8 % (40.0-70.0); PLATELET COUNT (AUTO) 311 K/uL (130-430); RED BLOOD CELL COUNT(AUTO) 3.76 MIL/uL (4.2-6.2); RED CELL DISTRIBUTION WIDTH 12.7 % (9.0-15.0); WHITE BLOOD COUNT (AUTO) 15.8 K/uL (4.8-10.8)
[2019-09-25 17:44] LABS: CREATININE 0.94 mg/dL (0.55-1.30); POTASSIUM 3.3 mmol/L (3.5-5.1)
[2019-09-25 17:50] LABS: ALBUMIN 2.6 g/dL (3.4-4.8); TOTAL BILIRUBIN 0.8 mg/dL (0.0-1.0)
--- NOTE | 2019-09-25 18:15 | NUR ---
Patient will be admitted to care of . Admitted to telemetry unit. Belongings list completed. Complete and up to date summary report printed. SBAR report to be given at bedside with opportunity for questions.
[2019-09-25] MEDS ORDERED: AZITHROMYCIN 500 MG/VIAL (ZITHROMAX) IV ONE (18:51)
--- NOTE | 2019-09-25 19:09 | NUR ---
Recieved report from JOSHUA Johnson.
--- NOTE | 2019-09-25 19:20 | NUR ---
Pt lying in bed with at bedside. Pt has no complaints at this time.
--- NOTE | 2019-09-25 20:50 | NUR ---
Pt medicated per MD orders. Pt tolerated well. Will continue to monitor.
--- NOTE | 2019-09-25 21:22 | NUR ---
Telemetry called and provided room number 108C in telemetry
--- NOTE | 2019-09-25 21:39 | NUR ---
Transfer to [facility] via ACLS protocol. Licensed nurse present. IV present no signs or symptoms of infiltration.
[2019-09-25 21:48] VITALS: BP_SYST 148
--- NOTE | 2019-09-25 21:48 | NUR ---
ADMISSION: The patient, COLT ROMERO O, 64 y/o, M admitted by JEAN MARIE PASCUAL MD, with diagnosis of PNA, primary nurse at bedtime, was given written information regarding hospital policies, unit procedures and contact persons.
--- NOTE | 2019-09-25 21:50 | NUR ---
ROUNDS PATIENT IN BED, NOT IN DISTRESS, VITALS STABLE, DENIES ANY PAIN AND DISCOMFORT AT THIS TIME. ADMISSION DATA AND ASSESSMENT DONE AND DOCUEMNTED. SEE FLOWSHEET. PLAN OF CARE DISCUSSED AND PATIENT VERBALIZED UNDERSTANDING. NEEDS ATTENDED TO. CALL LIGHT PLACED WITHIN REACH.
[2019-09-26] VITALS: BP_SYST 135
--- NOTE | 2019-09-26 00:14 | NUR ---
PATIENT RESTING: Patient resting quietly. No acute distress noted. Vital signs within normal range.
[2019-09-26] MEDS ORDERED: ONDANSETRON HCL 4 MG/2 ML VIAL IVP PRN (01:15)
[2019-09-26] MEDS ORDERED: ACETAMINOPHEN 325 MG TABLET PO PRN (01:15)
[2019-09-26] MEDS ORDERED: HYDROcodone/ACETAMIN 5-325 MG TAB (NORCO/ VICODIN) PO PRN (01:15)
--- NOTE | 2019-09-26 02:13 | NUR ---
ROUNDS PATIENT ASLEEP, RESPIRATIONS EVEN AND UNLABORED, WILL CONTINUE TO MONITOR.
[2019-09-26] MEDS: NACL 0.9% 1,000 ML IV SCH ×2 (03:31→14:30)
[2019-09-26] MEDS: PIPERACILLIN/TAZO 3.375/DEX-IS 50 ML IV SCH ×4 (03:31→18:17)
[2019-09-26] MEDS ORDERED: PIPERACILLIN/TAZOBACTAM 3.375 GM/VIAL (ZOSYN) IV ONE (03:34)
[2019-09-26 03:47] VITALS: BP_SYST 148
--- NOTE | 2019-09-26 04:10 | NUR ---
PATIENT RESTING: Patient resting quietly. No acute distress noted. Vital signs within normal range.
--- NOTE | 2019-09-26 06:21 | NUR ---
CLOSING NOTES PATIENT AWAKE, VITALS STABLE, DENIES ANY PAIN AT THIS TIME. ALL NEEDS ATTENDED TO. SAFETY MEASURES MAINTAINED. CALL LIGHT PLACED WITHIN REACH.
[2019-09-26 07:44] LABS: BASOPHILS % (AUTO) 0.2 % (0.0-2.0); EOSINOPHILS # (AUTO) 0.2 K/uL (0.0-0.4); EOSINOPHILS % (AUTO) 1.6 % (0.0-4.0); HEMATOCRIT 34.6 % (36-54); HEMOGLOBIN 11.8 g/dL (14.0-18.0); LYMPHOCYTES # (AUTO) 1.2 K/uL (1.0-5.5); LYMPHOCYTES % (AUTO) 8.5 % (20.5-51.5); MEAN CORPUSCULAR HEMOGLOBIN 33 pg (27-31); MEAN CORPUSCULAR HGB CONC 34 % (32-36); MEAN CORPUSCULAR VOLUME 96 fL (79.0-98.0); MONOCYTES # (AUTO) 1.2 K/uL (0.0-1.0); MONOCYTES % (AUTO) 8.6 % (1.7-9.3); NEUTROPHILS % (AUTO) 81.1 % (40.0-70.0); PLATELET COUNT (AUTO) 299 K/uL (130-430); RED BLOOD CELL COUNT(AUTO) 3.61 MIL/uL (4.2-6.2); RED CELL DISTRIBUTION WIDTH 12.7 % (9.0-15.0); WHITE BLOOD COUNT (AUTO) 13.5 K/uL (4.8-10.8)
[2019-09-26 07:49] LABS: ALBUMIN 2.1 g/dL (3.4-4.8); CALCIUM 7.2 mg/dL (8.4-11.0); CREATININE 0.77 mg/dL (0.55-1.30); POTASSIUM 3.3 mmol/L (3.5-5.1); TOTAL BILIRUBIN 0.8 mg/dL (0.0-1.0)
[2019-09-26 08:00] VITALS: BP_SYST 127
--- NOTE | 2019-09-26 08:00 | NUR ---
ASSUMPTION OF CARE: RECEIVED PT A/A/OX4, UP OOB, SITTING IN CHAIR, DX:INADEQUATE VENTILATION, R/T PNEUMONIA, BREATH SOUNDS ARE RHONCHI, BREATHING IS UNLABORED, IV SITE INTACT, PATENT, NO REDNESS OR SWELLING, AFEBRILE, VSS, NO INDICATION OF DISTRESS OR DISCOMFORT, WILL CONT' TO MONITOR AND ASSESS.
--- NOTE | 2019-09-26 08:20 | NUR ---
CONSULT SURGERY SURGICAL SITE PAIN DR ROACH [phone] S/W STEVEN EXCHANGE
--- NOTE | 2019-09-26 09:00 | NUR ---
[employer]: MORNING MEDS GIVEN, PER ORDERED BY Sally, TOLERATED WELL, ORIENTED TO CALL LIGHT, PLACED WITHIN REACH, WILL CONT' WITH POC.
[2019-09-26] MEDS: ENOXAPARIN SODIUM 40 MG/0.4 ML SYRINGE SUBCUT SCH (09:06)
[2019-09-26] MEDS: LISINOPRIL 10 MG TABLET (PRINIVIL) PO SCH (09:07)
[2019-09-26 12:00] VITALS: BP_SYST 127
--- NOTE | 2019-09-26 12:00 | NUR ---
NURSES NOTES: PT REMAINS STABLE, ABD BINDER PLACED FOR STABILITY WHEN COUGHING, INSTRUCTED TO ALSO BRACE ABD WITH PILLOW WHILE COUGHING, VERBALIZES UNDERSTANDING, RETURN DEMONSTRATION OBSERVED, WILL CONT' TO MONITOR AND ASSESS.
--- NOTE | 2019-09-26 14:00 | NUR ---
NURSES NOTES: PT ASLEEP IN BED WITH NO S/S OF DISTRESS, BREATHING UNLABORED, TOLERATING WELL, AT BEDSIDE, BROUGHT UP TO DATE ON PT CARE PLAN, QUESTIONS ANSWERED TO SATISFACTION, NEEDS MET, CALL LIGHT WITHIN REACH, WILL CONT' TO MONITOR AND ASSESS.
[2019-09-26 16:00] VITALS: BP_SYST 155
--- NOTE | 2019-09-26 16:00 | NUR ---
NURSES NOTES: PT ASLEEP, NO DISTRESS NOTED, NO PAIN, CALL LIGHT WITHIN REACH, WILL CONT' WITH POC.
[2019-09-26] MEDS: ALBUTEROL SULFATE 0.083% 2.5 MG/3 ML VIAL.NEB INH PRN ×2 (17:08→19:49)
--- NOTE | 2019-09-26 18:30 | NUR ---
VISIT: AT BEDSIDE FOR ASSESSMENT OF PT, DISCUSSED WITH PT AND FAMILY POC, VERBALIZES UNDERSTANDING, INCENTIVE SPIROMETER DEMONSTRATED AND PLACED AT BEDSIDE, PT RETURNED DEMONSTRATION AND STATES HE HAS USED ONE IN THE PAST, AND DAUGHTER REMAIN AT BEDSIDE, VSS, WILL CONT' WITH POC.
--- NOTE | 2019-09-26 19:40 | NUR ---
ROUNDS PATIENT RESTING IN BED AT THIS TIME, NOT IN DISTRESS, VITALS STABLE. DENIES ANY PAIN AND DISCOMFORT. IVF INFUSING WELL AT ORDERED RATE ON THE RIGHT AC G.20, PATENT, NO SIGNS OF INFILTRATION. NEEDS ATTENDED TO. SAFETY MEASURES IN PLACED. CALL LIGHT PLACED WITHIN REACH.
[2019-09-26] MEDS: AZITHROMYCIN 500 MG in NS 250 ML IV SCH (20:17)
--- NOTE | 2019-09-26 21:15 | NUR ---
MEDICATION DUE MEDICATIONS GIVEN ORDERED, TOLERATED WELL. WILL CONTINUE TO MONITOR.
[2019-09-27] MEDS: PIPERACILLIN/TAZO 3.375/DEX-IS 50 ML IV SCH ×5 (00:13→23:39)
--- NOTE | 2019-09-27 00:14 | NUR ---
PATIENT RESTING: Patient resting quietly. No acute distress noted. Vital signs within normal range.
--- NOTE | 2019-09-27 02:10 | NUR ---
ROUNDS PATIENT ASLEEP, RESPIRATIONS EVEN AND UNLABORED, WILL CONTINUE TO MONITOR.
--- NOTE | 2019-09-27 03:50 | NUR ---
IV REINSERTION IV ON THE RIGHT AC INFILTRATED, REINSERTED ON THE RIGHT HAND G. 22, PATENT. WILL CONTINUE TO MONITOR.
--- NOTE | 2019-09-27 08:00 | NUR ---
ASSUMPTION OF CARE: RECEIVED PT A/A/OX4, UP OOB, AMBULATING FROM BATHROOM, DX:INADEQUATE VENTILATION, R/T PNEUMONIA, BREATH SOUNDS ARE RHONCHI, BREATHING IS UNLABORED, IV SITE INTACT, PATENT, NO REDNESS OR SWELLING, AFEBRILE, VSS, NO INDICATION OF DISTRESS OR DISCOMFORT, WILL CONT' TO MONITOR AND ASSESS.
[2019-09-27 08:20] VITALS: BP_SYST 127
--- NOTE | 2019-09-27 08:55 | NUR ---
VISIT: AT BEDSIDE FOR ASSESSMENT OF PT, NEW ORDERS GIVEN, WILL CONT' TO MONITOR AND ASSESS.
--- NOTE | 2019-09-27 09:00 | NUR ---
MOBILE HOME SET UP PERSON: MORNING MEDS GIVEN, PER ORDERED BY Sally, TOLERATED WELL, ORIENTED TO CALL LIGHT, PLACED WITHIN REACH, WILL CONT' WITH POC.
[2019-09-27] MEDS: NACL 0.9% 1,000 ML IV SCH ×3 (11:00→23:39)
[2019-09-27] MEDS: ENOXAPARIN SODIUM 40 MG/0.4 ML SYRINGE SUBCUT SCH (11:02)
[2019-09-27 12:00] VITALS: BP_SYST 145
--- NOTE | 2019-09-27 14:00 | NUR ---
NURSES NOTES: PT REMAINS STABLE, NO SIGNIFICANT CHANGES IN CONDITION, BREATHING EASY, BREATH SOUNDS ARE CLEAR, NO S/S OF DISTRESS, NO C/O PAIN, AT BEDSIDE, CALL LIGHT PLACED WITHIN REACH, WILL CONT' WITH POC.
--- NOTE | 2019-09-27 16:00 | NUR ---
NURSES NOTES: PT A/A/OX4, UP OOB AMBULATING THRU HALLWAYS WITH STEADY GAIT, NO DISTRESS NOTED, BREATHING EASY, ACCOMPANIED BY , WILL CONT' WITH POC.
[2019-09-27 17:00] VITALS: BP_SYST 147
--- NOTE | 2019-09-27 19:45 | NUR ---
INITIAL NOTES PATIENT IS STABLE AND IN BED. NO S/S OF RESPIRATORY DISTRESS. FAMILY IS BY BEDSIDE. BED IS LOCKED AND AT THE LOWEST POSITION. FALL, SAFETY, ASPIRATION, AND RESPIRATORY PRECAUTIONS HAS BEEN IN PLACE THROUGHOUT THE SHIFT. PLAN OF CARE IS DISCUSSED WITH PATIENT. PATIENT SUCCESSFULLY DEMONSTRATES USAGE OF CALL LIGHT AT THIS TIME.
[2019-09-27 19:50] VITALS: BP_SYST 127
--- NOTE | 2019-09-27 21:45 | NUR ---
PATIENT LAYING IN BED AND IS STABLE. NO S/S OF RESPIRATORY DISTRESS. CALL LIGHT IN REACH. BED IS LOCKED AND AT THE LOWEST POSITION.
[2019-09-27] MEDS: AZITHROMYCIN 500 MG in NS 250 ML IV SCH (21:48)
--- NOTE | 2019-09-27 23:45 | NUR ---
PATIENT RESTING IN BED AND IS STABLE. NO S/S OF RESPIRATORY DISTRESS. CALL LIGHT IN REACH. BED IS LOCKED AND AT THE LOWEST POSITION.
[2019-09-28 00:04] VITALS: BP_SYST 136
--- NOTE | 2019-09-28 01:45 | NUR ---
PATIENT RESTING IN BED AND IS STABLE. NO S/S OF RESPIRATORY DISTRESS. CALL LIGHT IN REACH. BED IS LOCKED AND AT THE LOWEST POSITION.
--- NOTE | 2019-09-28 03:45 | NUR ---
PATIENT RESTING IN BED AND IS STABLE. NO S/S OF RESPIRATORY DISTRESS. CALL LIGHT IN REACH. BED IS LOCKED AND AT THE LOWEST POSITION.
--- NOTE | 2019-09-28 05:45 | NUR ---
PATIENT USED THE RESTROOM AT THIS STABLE. NO S/S OF RESPIRATORY DISTRESS. CALL LIGHT IN REACH.
[2019-09-28] MEDS: PIPERACILLIN/TAZO 3.375/DEX-IS 50 ML IV SCH ×4 (05:57→23:39)
--- NOTE | 2019-09-28 06:55 | NUR ---
CLOSING NOTES PATIENT IS STABLE. NO S/S OF RESPIRATORY DISTRESS NOTED. CALL LIGHT IN REACH. BED IS LOCKED, AND AT THE LOWEST POSITION. ALL NEEDS MET. FALL, SAFETY, ASPIRATION, AND RESPIRATORY PRECAUTIONS HAS BEEN IN PLACE THROUGHOUT THE SHIFT. WILL CONTINUE TO MONITOR UNTIL REPORT IS GIVEN TO AM NURSE BY BEDSIDE.
[2019-09-28 07:27] LABS: BASOPHILS % (AUTO) 0.4 % (0.0-2.0); EOSINOPHILS # (AUTO) 0.3 K/uL (0.0-0.4); EOSINOPHILS % (AUTO) 3.2 % (0.0-4.0); HEMATOCRIT 36.1 % (36-54); HEMOGLOBIN 12.1 g/dL (14.0-18.0); LYMPHOCYTES # (AUTO) 1.4 K/uL (1.0-5.5); LYMPHOCYTES % (AUTO) 12.9 % (20.5-51.5); MEAN CORPUSCULAR HEMOGLOBIN 32 pg (27-31); MEAN CORPUSCULAR HGB CONC 33 % (32-36); MEAN CORPUSCULAR VOLUME 96 fL (79.0-98.0); MONOCYTES # (AUTO) 1.3 K/uL (0.0-1.0); NEUTROPHILS # (AUTO) 7.5 K/uL (1.8-7.7); NEUTROPHILS % (AUTO) 71.5 % (40.0-70.0); PLATELET COUNT (AUTO) 366 K/uL (130-430); RED BLOOD CELL COUNT(AUTO) 3.77 MIL/uL (4.2-6.2); WHITE BLOOD COUNT (AUTO) 10.5 K/uL (4.8-10.8)
[2019-09-28 07:51] LABS: ALBUMIN 2.2 g/dL (3.4-4.8); CALCIUM 7.6 mg/dL (8.4-11.0); CREATININE 0.81 mg/dL (0.55-1.30); POTASSIUM 3.2 mmol/L (3.5-5.1); TOTAL BILIRUBIN 0.5 mg/dL (0.0-1.0)
[2019-09-28 08:00] VITALS: BP_SYST 139
--- NOTE | 2019-09-28 08:00 | NUR ---
Note Pt sitting up in BS chair with IV in right AC intact and patent infusing IVF's well. No SOB/resp distress or pain/discomfort noted at this time. Pt eating his breakfast, pt's at bedside at this time as well. No needs noted at this time. Call light within reach.
[2019-09-28] MEDS: LISINOPRIL 10 MG TABLET (PRINIVIL) PO SCH (08:33)
[2019-09-28] MEDS: ENOXAPARIN SODIUM 40 MG/0.4 ML SYRINGE SUBCUT SCH (08:44)
--- NOTE | 2019-09-28 11:37 | NUR ---
Pulmo consult called: for Dr. Mcgovern, regarding pna, ordered by dr. Davis, spoke with Gladys.
[2019-09-28 12:00] VITALS: BP_SYST 139
--- NOTE | 2019-09-28 12:00 | NUR ---
Note Pt has been ambulating in room and hallway with his and IV pole with steady gait. Pt was seen by Dr Davis and consult for Dr Mcgovern has been put in. Waiting for Dr Mcgovern to see pt. Pt's IVF's were saline locked as pt drinks a lot of fluids at this time.
[2019-09-28] MEDS: NACL 0.9% 1,000 ML IV SCH (13:12)
--- NOTE | 2019-09-28 15:42 | NUR ---
Note Dr Mcgovern called back and will be coming in to see pt this evening. Pt and his were notified. Pt denies any needs at this time. Call light within reach.
[2019-09-28 16:00] VITALS: BP_SYST 143
[2019-09-28] MEDS ORDERED: POTASSIUM CHLORIDE 20 MEQ TAB.PRT.SR PO ONE (17:45)
--- NOTE | 2019-09-28 18:50 | NUR ---
Note Pt was seen by Dr Mcgovern at bedside and order for CT of abdomen and chest written and CT was completed at this time. No SOB/resp distress or pain/discomfort noted. Pt was checked on q1' and PRN all shift for needs and care all shift. No needs noted. Pt has been ambulatory all shift in room and hallway. Call light within reach. IV in right hand intact and patent at this time.
--- NOTE | 2019-09-28 19:30 | NUR ---
OPENING NOTE RECEIVED CARE OF PT AND SBAR REPORT. PT IS AAOX4, RESTING IN BED, NO S/S OF ACUTE DISTRESS. BREATHING IS EVEN AND UNLABORED TO ROOM AIR, NO S/S OF RESPIRATORY DISTRESS. PT DENIES PAIN AT THIS TIME. IV TO RIGHT HAND IS SALINE LOCKED. POC DISCUSSED WITH PT, PT VERBALIZED UNDERSTANDING. INCENTIVE SPIROMETER AT BEDSIDE, PT EDUCATED REGARDING PROPER USE AND FREQUENCY OF INCENTIVE SPIROMETER. SAFETY AND FALL PRECAUTIONS ARE IN PLACE: BED IS LOCKED IN LOWEST POSITION, SIDE RAILS UP X2, CALL LIGHT IS WITH PT. WILL MONITOR.
[2019-09-28 20:00] VITALS: BP_SYST 158
[2019-09-28] MEDS: AZITHROMYCIN 500 MG in NS 250 ML IV SCH (20:22)
--- NOTE | 2019-09-28 20:22 | NUR ---
MED PASS PT AMBULATED TO RESTROOM AND RETURNED TO BED, PT TOLERATED ACTIVITY WELL. PT GIVEN SCHEDULED ZITHROMAX AND K-DUR. MEDICATIONS AND POTENTIAL SIDE EFFECTS DISCUSSED, PT VERBALIZED UNDERSTANDING. NO S/S OF DISTRESS. SAFETY MAINTAINED, CALL LIGHT IS WITH PT. WILL MONITOR.
--- NOTE | 2019-09-28 22:05 | NUR ---
RESTING PT RESTING IN BED, NO S/S OF ACUTE DISTRESS, BREATHING IS UNLABORED TO ROOM AIR. VISIBLE SYMMETRICAL RISE AND FALL OF CHEST TO ROOM AIR. NO SIGN OF PAIN OR DISCOMFORT. SAFETY PRECAUTIONS MAINTAINED. WILL MONITOR.
--- NOTE | 2019-09-28 23:39 | NUR ---
ZOSYN SCHEDULED ZOSYN ADMINISTERED ORDERED. NO S/S OF ADVERSE REACTION NOTED. VSS. SAFETY PRECAUTIONS MAINTAINED. WILL MONITOR.
[2019-09-29] VITALS: BP_SYST 148
--- NOTE | 2019-09-29 01:40 | NUR ---
RN ROUNDS: PT RESTING IN BED, NO S/S OF ACUTE DISTRESS, BREATHING IS UNLABORED TO ROOM AIR. VISIBLE SYMMETRICAL RISE AND FALL OF CHEST TO ROOM AIR. NO SIGN OF PAIN OR DISCOMFORT. SAFETY PRECAUTIONS MAINTAINED. WILL MONITOR.
[2019-09-29] MEDS: PIPERACILLIN/TAZO 3.375/DEX-IS 50 ML IV SCH ×2 (05:37→10:54)
--- NOTE | 2019-09-29 05:37 | NUR ---
ANTIBIOTIC SCHEDULED ZOSYN ADMINISTERED ORDERED. NO S/S OF ADVERSE REACTION NOTED. SAFETY PRECAUTIONS MAINTAINED. WILL MONITOR.
--- NOTE | 2019-09-29 06:43 | NUR ---
CLOSING NOTE PT IS AAOX4, AMBULATING IN ROOM, NO S/S OF ACUTE DISTRESS. BREATHING IS EVEN AND UNLABORED TO ROOM AIR, NO S/S OF RESPIRATORY DISTRESS. PT DENIES PAIN AT THIS TIME. IV TO RIGHT HAND IS SALINE LOCKED. INCENTIVE SPIROMETER AT BEDSIDE, PT HAS USED THROUGHOUT SHIFT. SAFETY AND FALL PRECAUTIONS REMAIN IN PLACE. WILL CONTINUE TO MONITOR UNTIL PT CARE IS ENDORSED TO DAY SHIFT RN.
--- NOTE | 2019-09-29 07:54 | NUR ---
Patient up in bathroom during rounds. Will follow up with vital signs and assessment. Joseph Morgan RN
[2019-09-29] MEDS ORDERED: AMOX-426 PO (08:16)
[2019-09-29] MEDS: ENOXAPARIN SODIUM 40 MG/0.4 ML SYRINGE SUBCUT SCH (10:53)
[2019-09-29 13:20] VITALS: BP_SYST 132
[2019-09-29 14:34] VITALS: BP_SYST 132
--- NOTE | 2019-09-29 15:41 | NUR ---
Patient intravenous site discontinued. Intact 22 gauge iv catheter tip noted. Patient identification band removal. Preparation of discharge instruction. Review of medication reconciliation, reason for admission, follow up care. Patient verbalizes understanding of care. Plan: Discharge to home with all belongings.
== END 2019-09-29 15:25 | disposition home or self-care (01) | DRG 871 ==
LOC: SED 14:45 → STU 18:12 → SMU 09-27 15:37
PROVIDERS: ADMIT Internal Medicine; ATTEND Internal Medicine
DX: A41.9 Sepsis, unspecified organism (principal); J18.9 Pneumonia, unspecified organism; E87.1 Hypo-osmolality and hyponatremia; J91.8 Pleural effusion in other conditions classified elsewhere; E87.6 Hypokalemia; F17.290 Nicotine dependence, other tobacco product, uncomplicated; I10 Essential (primary) hypertension; E66.9 Obesity, unspecified; Z82.49 Family history of ischemic heart disease and other diseases of the circulatory system; Z90.49 Acquired absence of other specified parts of digestive tract; Z98.52 Vasectomy status; Z79.899 Other long term (current) drug therapy; Z68.34 Body mass index [BMI] 34.0-34.9, adult
CPT/HCPCS: 36415; 71045; 71046-TC; 71250-TC; 80053; 83605; 85025; 87040-TC; 87081; 94010; 94640; 94760; 96365; 96367; 99285; G0378; J0456; J1650; J1956; J2543; J7030; J7050; J7613